=== PATIENT | female | born 1985 | race African-American/Black ===

== ENCOUNTER 2017-04-17 09:22 | Emergency (ER) | payer MEDICAID, OTHER ==
[~2017-04-17] VITALS: Ht 160 cm; Wt 90.0 kg
[2017-04-17] MEDS ORDERED: KETOROLAC 60MG/2ML VIAL IM ONE (10:30)
[2017-04-17] MEDS ORDERED: TRAMADOL 50MG TABLET PO ONE (10:30)
[2017-04-17 10:46] LABS: CLARITY URINE CLEAR (CLEAR); COLOR URINE YELLOW (YELLOW); GLUCOSE URINE NEGATIVE (NEGATIVE); KETONES URINE TRACE (NEGATIVE); LEUKOCYTE ESTERASE URINE NEGATIVE (NEGATIVE); NITRITE URINE NEGATIVE (NEGATIVE); OCCULT BLOOD URINE NEGATIVE (NEGATIVE); PH URINE 5.5 (4.5-8.0); PROTEIN URINE 2+ (NEGATIVE); SPECIFIC GRAVITY URINE 1.021 (1.005-1.030)
[2017-04-17 14:04] VITALS: BP 110/62
== END 2017-04-17 14:04 | disposition home or self-care (01) ==
LOC: ER 09:24
DX: R07.81 Pleurodynia (principal); M54.9 Dorsalgia, unspecified; M25.559 Pain in unspecified hip; S00.83XA Contusion of other part of head, initial encounter; Y08.89XA Assault by other specified means, initial encounter; Y93.89 Activity, other specified; Y92.89 Other specified places as the place of occurrence of the external cause
CPT/HCPCS: 71101; 72100; 73502; 81001; 81025; 96372; 99285; J1885

== ENCOUNTER 2019-01-18 17:31 | Emergency (ER) | payer MEDICAID ==
[~2019-01-18] VITALS: Ht 162.6 cm; Wt 65.0 kg
[2019-01-18] MEDS ORDERED: SODIUM CHLORIDE 0.9% 1,000 ML IV ONE (18:35)
[2019-01-18 18:46] LABS: EOSINOPHILS % 1.7 % (0.0-5.0); HEMATOCRIT. 43.5 % (36.0-48.0); HEMOGLOBIN. 14.7 g/dL (12.0-16.0); LYMPHOCYTES % 43.4 % (20.0-50.0); MEAN CORPUSCULAR HEMOGLOBIN 29.2 pg (28.0-32.0); MEAN CORPUSCULAR VOLUME 86.4 fL (81.0-99.0); MEAN PLATELET VOLUME 9.5 fl (7.4-10.4); MONOCYTES % 6.4 % (2.0-8.0); NEUTROPHILS % 47.5 % (40.0-76.0); PLATELET 376 x1000/uL (130-400); RED BLOOD CELL COUNT 5.03 mill/uL (4.2-5.4); RED CELL DISTRIBUTION WIDTH 13.4 % (11.6-14.6)
[2019-01-18 18:52] LABS: CHLORIDE 111 mEq/L (98-107)
[2019-01-18 19:58] LABS: HCG SCREEN NEGATIVE
[2019-01-18] MEDS ORDERED: IBUPROFEN 600MG TABLET PO ONE (20:30)
[2019-01-18 21:12] VITALS: BP 123/80
== END 2019-01-18 21:17 | disposition home or self-care (01) ==
LOC: ER 17:38
DX: R07.89 Other chest pain (principal); F17.210 Nicotine dependence, cigarettes, uncomplicated; Z71.6 Tobacco abuse counseling; Z98.890 Other specified postprocedural states
CPT/HCPCS: 36415; 71045; 80053; 84703; 85025; 85379; 93005; 99284; 99406; J7030